=== PATIENT | female | born 1980 | race Caucasian/White ===

== ENCOUNTER 2017-05-04 19:41 | Emergency (ER) | payer MEDICAID, OTHER ==
[~2017-05-04] VITALS: Ht 154.9 cm; Wt 66.0 kg
[2017-05-04 20:46] VITALS: BP 132/87
== END 2017-05-05 01:57 | disposition left against medical advice (07) ==
LOC: ER 19:41
DX: Z04.3 Encounter for examination and observation following other accident (principal); Z53.21 Procedure and treatment not carried out due to patient leaving prior to being seen by health care provider

== ENCOUNTER 2018-02-13 19:26 | Emergency (ER) | payer MEDICAID, OTHER ==
[~2018-02-13] VITALS: Ht 152.4 cm; Wt 69.0 kg
[2018-02-14] MEDS ORDERED: IBUPROFEN 600MG TABLET PO ONE (01:00)
[2018-02-14 02:18] VITALS: BP 131/81
== END 2018-02-14 02:24 | disposition home or self-care (01) ==
LOC: ER 19:26
DX: S43.401A Unspecified sprain of right shoulder joint, initial encounter (principal); M25.521 Pain in right elbow; I10 Essential (primary) hypertension; K21.9 Gastro-esophageal reflux disease without esophagitis; F17.200 Nicotine dependence, unspecified, uncomplicated; W22.8XXA Striking against or struck by other objects, initial encounter; Y93.89 Activity, other specified; Y92.89 Other specified places as the place of occurrence of the external cause; Y99.8 Other external cause status
CPT/HCPCS: 73030; 73080; 99284

== ENCOUNTER 2018-06-04 01:36 | Emergency (ER) | payer MEDICAID ==
[~2018-06-04] VITALS: Ht 152.4 cm; Wt 62.0 kg
[2018-06-04 05:10] VITALS: BP 118/77
== END 2018-06-04 06:09 | disposition home or self-care (01) ==
LOC: ER 01:36
DX: M25.531 Pain in right wrist (principal); Z98.890 Other specified postprocedural states
CPT/HCPCS: 73110; 99284; A4565

== ENCOUNTER 2019-09-06 17:57 | Emergency (ER) | payer MEDICAID ==
[~2019-09-06] VITALS: Ht 154.9 cm; Wt 74.0 kg
[2019-09-06 17:59] VITALS: BP 111/58
== END 2019-09-06 21:42 | disposition left against medical advice (07) ==
LOC: ER 17:57
DX: S69.81XA Other specified injuries of right wrist, hand and finger(s), initial encounter (principal); X58.XXXA Exposure to other specified factors, initial encounter; Y93.89 Activity, other specified; Y92.89 Other specified places as the place of occurrence of the external cause; Y99.8 Other external cause status; Z53.21 Procedure and treatment not carried out due to patient leaving prior to being seen by health care provider

== ENCOUNTER 2022-05-04 10:40 | Emergency (ER) | payer MEDICAID ==
[~2022-05-04] VITALS: Ht 152.4 cm; Wt 90.0 kg
[2022-05-04] MEDS ORDERED: IBUPROFEN 600MG TABLET PO STA (12:23)
[2022-05-04 12:35] VITALS: BP 132/72
[2022-05-04] MEDS ORDERED: NAPR-681 PO (12:47)
== END 2022-05-04 12:55 | disposition home or self-care (01) ==
LOC: ER 10:40
DX: S67.191A Crushing injury of left index finger, initial encounter (principal); S00.83XA Contusion of other part of head, initial encounter; W18.39XA Other fall on same level, initial encounter; Y93.89 Activity, other specified; Y92.89 Other specified places as the place of occurrence of the external cause; Y99.8 Other external cause status; Z98.890 Other specified postprocedural states
CPT/HCPCS: 73140; 81025; 99283